=== PATIENT | male | born 1955 | race African-American/Black ===

== ENCOUNTER 2019-10-30 12:23 | Emergency (ER) | payer SELFPAY ==
[~2019-10-30] VITALS: Ht 177.8 cm; Wt 82.0 kg
[2019-10-30 14:48] LABS: HEMATOCRIT. 27.1 % (42.0-52.0); HEMOGLOBIN. 8.9 g/dL (14.0-18.0); MEAN CORPUSCULAR HEMOGLOBIN 22.5 pg (28.0-32.0); PLATELET 418 x1000/uL (130-400); RED BLOOD CELL COUNT 3.93 mill/uL (4.7-6.1); RED CELL DISTRIBUTION WIDTH 19.3 % (11.6-14.6)
[2019-10-30 14:55] LABS: CHLORIDE 108 mEq/L (98-107)
[2019-10-30 15:05] LABS: ETHANOL BLOOD 300 mg/dL
[2019-10-30 15:11] LABS: PLATELET ESTIMATE INCREASED
[2019-10-30 15:16] VITALS: BP 107/57
== END 2019-10-30 15:15 | disposition left against medical advice (07) ==
LOC: EDBD 12:23 → ER 12:23
DX: F10.129 Alcohol abuse with intoxication, unspecified (principal); Y90.8 Blood alcohol level of 240 mg/100 ml or more; Z59.0 Homelessness; Y92.480 Sidewalk as the place of occurrence of the external cause; R41.82 Altered mental status, unspecified; R03.0 Elevated blood-pressure reading, without diagnosis of hypertension
CPT/HCPCS: 36415; 71045; 80320; 84443; 93005; 99284; G0480